=== PATIENT | male | born 1965 | race Caucasian/White ===

== ENCOUNTER 2018-04-29 07:53 | Day surgery (SDC) | payer OTHER, BC ==
[~2018-04-29 07:53] MED LIST: Midazolam 1 MG/ML 2 ML SDV ONE; fentaNYL 100 MCG/2 ML SDV ONE
[2018-04-29] MEDS ORDERED: Midazolam 1 MG/ML 2 ML SDV IV ONE ×3 (07:54→09:14)
[2018-04-29] MEDS ORDERED: fentaNYL 100 MCG/2 ML SDV IV ONE ×3 (07:54→09:12)
[2018-04-29] MEDS ORDERED: Lactated Ringers 1,000 ML IV SCH (09:00)
[2018-04-29] MEDS ORDERED: Benzocaine 20% Oral Spray 59.2 ML Canister MUCMEM ONE (09:09)
[2018-04-29] MEDS ORDERED: Benzocaine 20% Oral Spray 59.2 ML Canister ONE (09:13)
--- NOTE | 2018-04-29 10:24 | OR ---
DATE: 04/29/2018 PREOPERATIVE DIAGNOSES: Gastroesophageal reflux disease and dysphagia. POSTOPERATIVE DIAGNOSES: Gastroesophageal reflux disease and dysphagia. PROCEDURES: Esophagogastroduodenoscopy with photographs. ANESTHESIA: Conscious sedation with IV Versed and topical anesthesia for the pharynx. SPECIMEN: None. OPERATIVE FINDINGS: [id number] sized hiatal hernia. No evidence of distal esophagitis, masses, scarring, or bleeding. RECOMMENDATION: This patient is pretty well controlled on his medication for heartburn symptoms. His dysphagia most likely is due to the upper pouch of the hiatal hernia with some food impaction temporarily. Might be a candidate for Zulema fundoplication and hiatal hernia repair if his symptoms become intolerable. Would recommend a followup EGD in 3 to 5 years. INDICATION FOR PROCEDURE: This 52-year-old male has known GERD and some dysphagia. PROCEDURE IN DETAIL: After adequate preparation, a gastroscope was inserted into the esophagus. This was easily passed down through the distal esophagus. He showed about a 4 cm hiatal hernia with no evidence of Hawkins esophageal changes or esophagitis. Does not have any stricture at the lower esophageal sphincter. A photograph of the hernia pouch was taken. The scope was advanced into the stomach. Both forward and retroflexed views were done. This confirmed a moderate-sized hiatal hernia. No gastric abnormalities were noted. The scope was advanced through the pylorus, and the first and second parts of the duodenum were normal. The scope was withdrawn into the stomach, air was suctioned, and the scope was removed. [facility] /[id number] CC: [facility]
[2018-04-29 11:05] VITALS: BP 140/89
[2018-04-29] MEDS ORDERED: Dextrose 5%-0.45% NaCl 1,000 ML IV SCH (11:15)
== END 2018-04-29 10:45 | disposition home or self-care (01) ==
LOC: DL.ENDO 07:53
PROVIDERS: ATTEND Surgery
DX: K21.9 Gastro-esophageal reflux disease without esophagitis (principal); R13.10 Dysphagia, unspecified; K44.9 Diaphragmatic hernia without obstruction or gangrene; C15.9 Malignant neoplasm of esophagus, unspecified; Z79.82 Long term (current) use of aspirin; Z79.899 Other long term (current) drug therapy; Z88.0 Allergy status to penicillin
CPT/HCPCS: 43235; J2250; J3010; J7042